=== PATIENT | male | born 1975 | race Caucasian/White ===

== ENCOUNTER 2016-12-12 17:21 | Emergency (ER) | payer OTHER | END 2016-12-12 19:25 | disposition home or self-care (01) | LOC: ER1 17:21 | DX: S39.012A Strain of muscle, fascia and tendon of lower back, initial encounter (principal); V43.52XA Car driver injured in collision with other type car in traffic accident, initial encounter; Z79.899 Other long term (current) drug therapy | CPT/HCPCS: 72070; 72125; 72131; 73502; 96372; 99284; J1885 ==

== ENCOUNTER → 2020-07-21 | Outpatient (CLI) | payer OTHER | LOC: RAD 12:49 | DX: M54.5 Low back pain (principal); G89.29 Other chronic pain; M96.1 Postlaminectomy syndrome, not elsewhere classified; M47.812 Spondylosis without myelopathy or radiculopathy, cervical region; M47.814 Spondylosis without myelopathy or radiculopathy, thoracic region | CPT/HCPCS: 72040; 72070; 72100 ==